=== PATIENT | male | born 1950 | race African-American/Black ===

== ENCOUNTER 2023-09-12 15:06 | Inpatient (IN) | payer MEDICARE, MEDICAID ==
[~2023-09-12] VITALS: Ht 162.6 cm; Wt 60.8 kg
[2023-09-12] MEDS: LATANOPROST 0.005% OPHTH DROPS 2.5ML EACHEYE SCH (11:15)
[2023-09-12 15:07] VITALS: O2SAT 100
[2023-09-12 16:20] LABS: BASOPHILS % 0.3 % (0.0-2.0); EOSINOPHILS % 0.4 % (0.0-5.0); HEMATOCRIT. 29.3 % (42.0-52.0); HEMOGLOBIN. 9.3 g/dL (14.0-18.0); LYMPHOCYTES % 7.7 % (20.0-50.0); MEAN CORPUSCULAR HEMOGLOBIN 25.8 pg (28.0-32.0); MEAN CORPUSCULAR HGB CONC 31.7 g/dL (31.0-37.0); MEAN CORPUSCULAR VOLUME 81.6 fL (80.0-94.0); MONOCYTES % 10.1 % (2.0-8.0); NEUTROPHILS % 81.5 % (40.0-76.0); PLATELET 146 x1000/uL (130-400); RED BLOOD CELL COUNT 3.59 mill/uL (4.7-6.1); RED CELL DISTRIBUTION WIDTH 15.3 % (11.6-14.6); WHITE BLOOD COUNT 5.8 x1000/uL (4.5-11.0)
[2023-09-12 16:27] LABS: CHLORIDE 101 mEq/L (98-107); POTASSIUM 3.5 mEq/L (3.5-5.1); SODIUM 133 mEq/L (136-145)
[2023-09-12 16:28] LABS: CARBON DIOXIDE 26 mEq/L (21-32)
[2023-09-12 16:29] LABS: CALCIUM 9.5 mg/dL (8.7-10.4)
[2023-09-12 16:34] LABS: GLUCOSE 93 mg/dL (70-105); UREA NITROGEN BLOOD 10 mg/dL (9-23)
[2023-09-12 16:36] LABS: CREATININE 0.4 mg/dL (0.6-1.3)
[2023-09-12 16:37] LABS: TROPONIN I HIGH SENSITIVITY < 4 ng/L (3.0-53)
[2023-09-12 16:47] LABS: D-DIMER 10.17 mg/L FEU (<0.50); INR 1.2; PROTHROMBIN TIME 13.5 sec (9.6-11.0)
[2023-09-12] MEDS: MORPHINE SULFATE 4 MG/ML INJ (FOR IV/IM USE) IV ONE (17:27)
[2023-09-12] MEDS: ONDANSETRON HCL 4MG/2ML INJ IV ONE (17:28)
[2023-09-12] MEDS ORDERED: IPRATROPIUM/ALBUTEROL 0.5-3(2.5)MG/3ML NEB HHN PRN (19:45)
[2023-09-12] MEDS ORDERED: NA PHOS,M-B/NA PHOS,DI-BA ENEMA 118ML PR PRN (19:45)
[2023-09-12] MEDS ORDERED: MAGNESIUM/ALUMINUM HYDROXIDE/SIMETHICONE 30ML UDC PO PRN (19:45)
[2023-09-12] MEDS ORDERED: ONDANSETRON HCL 4MG/2ML INJ IV PRN (19:45)
[2023-09-12] MEDS ORDERED: ACETAMINOPHEN 325MG TABLET PO PRN (19:45)
[2023-09-12] MEDS ORDERED: ZOLPIDEM TARTRATE 5MG TABLET PO PRN (19:45)
[2023-09-12] MEDS ORDERED: LATA2.5D14 EACHEYE (20:31)
[2023-09-12] MEDS ORDERED: TIMO15DR11 EACHEYE (20:31)
[2023-09-12] MEDS ORDERED: ATOR20TA65 PO (20:31)
[2023-09-12] MEDS ORDERED: DORZ10DR8 EACHEYE (20:31)
[2023-09-12] MEDS ORDERED: HYDR-4001 PO (20:31)
[2023-09-12] MEDS: DOCUSATE SODIUM 100MG CAPSULE PO SCH (20:37)
[2023-09-12] MEDS: LACTULOSE 20G/30ML UDC PO NR (20:38)
[2023-09-12 20:43] LABS: CLARITY URINE CLEAR (CLEAR); COLOR URINE YELLOW (YELLOW); GLUCOSE URINE NEGATIVE (NEGATIVE); KETONES URINE 1+ (NEGATIVE); LEUKOCYTE ESTERASE URINE NEGATIVE (NEGATIVE); NITRITE URINE NEGATIVE (NEGATIVE); OCCULT BLOOD URINE NEGATIVE (NEGATIVE); PH URINE 5.5 (4.5-8.0); PROTEIN URINE NEGATIVE (NEGATIVE); SPECIFIC GRAVITY URINE 1.015 (1.005-1.030)
[2023-09-12 20:56] LABS: *AMPHETAMINES SCREEN URINE NEGATIVE (NEGATIVE); *BARBITURATES SCREEN URINE NEGATIVE (NEGATIVE); *BENZODIAZEPINES SCREEN URINE NEGATIVE (NEGATIVE); *COCAINE SCREEN URINE NEGATIVE (NEGATIVE); CANNABINOID URINE SCREEN NEGATIVE (NEGATIVE); ECSTASY MDMA SCREEN URINE NEGATIVE (NEGATIVE); METHADONE URINE SCREEN NEGATIVE (NEGATIVE); OPIATES URINE SCREEN PRESUMPTIVE POSITIVE (NEGATIVE); PHENCYCLIDINE URINE SCREEN NEGATIVE (NEGATIVE)
[2023-09-12 22:49] LABS: FOLIC ACID (FOLATE) SERUM 17.05 ng/mL (>5.38)
[2023-09-12 22:50] LABS: FERRITIN 1067 ng/mL (22-322); VITAMIN B12 SERUM 630 pg/mL (211-911)
[2023-09-12] MEDS: ATORVASTATIN CALCIUM 20MG TABLET PO SCH (23:08)
[2023-09-12] MEDS: DORZOLAMIDE 2% OPHTH 10 ML BOTTLE EACHEYE SCH (23:08)
[2023-09-12] MEDS: FAMOTIDINE 20MG TABLET PO SCH (23:08)
[2023-09-12] MEDS ORDERED: IOHEXOL-350 100 ML BOTTLE ONE (23:24)
[2023-09-13] VITALS: BP 124/68; PULSE 78; RESP 18; TEMP 98.2
[2023-09-13] MEDS: HYDROCODONE/ACETAMINOPHEN 5/325MG TABLET PO PRN (03:31)
[2023-09-13 07:35] LABS: BASOPHILS % 0.4 % (0.0-2.0); EOSINOPHILS % 0.7 % (0.0-5.0); HEMATOCRIT. 28.7 % (42.0-52.0); LYMPHOCYTES % 8.4 % (20.0-50.0); MEAN CORPUSCULAR HEMOGLOBIN 25.8 pg (28.0-32.0); MEAN CORPUSCULAR HGB CONC 31.5 g/dL (31.0-37.0); MEAN CORPUSCULAR VOLUME 81.9 fL (80.0-94.0); MEAN PLATELET VOLUME 7.3 fl (7.4-10.4); NEUTROPHILS % 80.5 % (40.0-76.0); PLATELET 141 x1000/uL (130-400); RED CELL DISTRIBUTION WIDTH 15.6 % (11.6-14.6); WHITE BLOOD COUNT 5.5 x1000/uL (4.5-11.0)
[2023-09-13 07:41] LABS: CHLORIDE 101 mEq/L (98-107); POTASSIUM 3.6 mEq/L (3.5-5.1); SODIUM 134 mEq/L (136-145)
[2023-09-13 07:42] LABS: CALCIUM 10.1 mg/dL (8.7-10.4); CARBON DIOXIDE 23 mEq/L (21-32)
[2023-09-13 07:45] LABS: CREATINE KINASE MB FRACTION < 0.5 ng/mL (0.5-3.6)
[2023-09-13 07:47] LABS: CREATINE KINASE 35 IU/L (46-171); CREATININE 0.4 mg/dL (0.6-1.3); GLUCOSE 98 mg/dL (70-105); UREA NITROGEN BLOOD 7 mg/dL (9-23)
[2023-09-13 07:49] LABS: PHOSPHORUS 3.7 mg/dL (2.5-4.9)
[2023-09-13 07:50] LABS: TROPONIN I HIGH SENSITIVITY < 4 ng/L (3.0-53)
[2023-09-13 08:00] VITALS: BP 121/79; PULSE 74; RESP 20; TEMP 97.7
[2023-09-13] MEDS: TIMOLOL MALEATE 0.25% OPHTH DROPS 5ML EACHEYE SCH (08:51)
[2023-09-13] MEDS: ENOXAPARIN 40MG/0.4ML SYR SUBCUT SCH (08:55)
[2023-09-13 12:00] VITALS: BP 105/69; PULSE 70; RESP 20; TEMP 98
[2023-09-13] MEDS: MAGNESIUM 2 G PREMIX 50 ML IV SCH (13:39)
[2023-09-13 16:00] VITALS: BP 124/70; PULSE 64; RESP 18; TEMP 97.7
[2023-09-13] MEDS: MORPHINE SULFATE 2 MG/ML CPJ (NOT FOR IM USE) IV PRN (19:35)
[2023-09-13 20:00] VITALS: PULSE 69; RESP 18; TEMP 97.7
[2023-09-14] VITALS: BP 121/64; PULSE 68; RESP 19; TEMP 97.6
[2023-09-14 04:00] VITALS: BP 134/76; PULSE 65; RESP 17; TEMP 97.5
[2023-09-14 08:00] VITALS: BP 132/70; PULSE 71; RESP 18; TEMP 97.9
[2023-09-14 12:00] VITALS: BP 117/61; PULSE 70; RESP 18; TEMP 97.7
[2023-09-14 16:00] VITALS: BP 129/62; PULSE 69; RESP 18; TEMP 97.6
[2023-09-14 16:17] LABS: HEMATOCRIT 30.6 % (42.0-52.0); HEMOGLOBIN 9.4 g/dL (14.0-18.0); MEAN CORPUSCULAR HEMOGLOBIN 25.6 pg (28.0-32.0); MEAN CORPUSCULAR HGB CONC 30.8 g/dL (31.0-37.0); MEAN CORPUSCULAR VOLUME 83.1 fL (80.0-94.0); PLATELET 149 x1000/uL (130-400); RED BLOOD CELL COUNT 3.69 mill/uL (4.7-6.1); RED CELL DISTRIBUTION WIDTH 15.3 % (11.6-14.6)
[2023-09-14 16:32] LABS: CALCIUM 9.5 mg/dL (8.7-10.4); CARBON DIOXIDE 25 mEq/L (21-32); CHLORIDE 99 mEq/L (98-107); POTASSIUM 3.8 mEq/L (3.5-5.1); SODIUM 135 mEq/L (136-145)
[2023-09-14 16:37] LABS: CREATININE 0.5 mg/dL (0.6-1.3); GLUCOSE 135 mg/dL (70-105)
[2023-09-14 16:38] LABS: UREA NITROGEN BLOOD 8 mg/dL (9-23)
[2023-09-14 16:40] LABS: PHOSPHORUS 3.1 mg/dL (2.5-4.9)
[2023-09-14 20:00] VITALS: BP 110/68; PULSE 73; RESP 18; TEMP 97.5
[2023-09-15] VITALS: BP 121/65; PULSE 72; RESP 18; TEMP 97.5
[2023-09-15 04:00] VITALS: BP 122/86; PULSE 71; RESP 18; TEMP 97.3
[2023-09-15 08:00] VITALS: BP 143/84; PULSE 94; RESP 18; TEMP 98
[2023-09-15 10:36] LABS: HEMATOCRIT 32.8 % (42.0-52.0); HEMOGLOBIN 10.4 g/dL (14.0-18.0); MEAN CORPUSCULAR HEMOGLOBIN 25.9 pg (28.0-32.0); MEAN CORPUSCULAR HGB CONC 31.5 g/dL (31.0-37.0); MEAN CORPUSCULAR VOLUME 82.1 fL (80.0-94.0); RED CELL DISTRIBUTION WIDTH 15.4 % (11.6-14.6); WHITE BLOOD COUNT 8.9 x1000/uL (4.5-11.0)
[2023-09-15 10:44] LABS: CALCIUM 10.1 mg/dL (8.7-10.4); CARBON DIOXIDE 27 mEq/L (21-32); CHLORIDE 96 mEq/L (98-107); POTASSIUM 3.4 mEq/L (3.5-5.1); SODIUM 136 mEq/L (136-145)
[2023-09-15 10:50] LABS: CREATININE 0.5 mg/dL (0.6-1.3); GLUCOSE 114 mg/dL (70-105); UREA NITROGEN BLOOD 9 mg/dL (9-23)
[2023-09-15 10:52] LABS: PHOSPHORUS 3.4 mg/dL (2.5-4.9)
[2023-09-15 12:00] VITALS: BP 131/74; PULSE 70; RESP 20; TEMP 97.2
[2023-09-15 12:05] LABS: PLATELET 157 x1000/uL (130-400)
[2023-09-15] MEDS: POTASSIUM CHLORIDE 20MEQ/PACKET PO NR (13:14)
[2023-09-15 16:00] VITALS: BP 100/67; PULSE 74; RESP 20; TEMP 97.6
[2023-09-15] MEDS: CLONIDINE 0.1MG TABLET PO PRN (21:33)
[2023-09-15 23:53] VITALS: BP 169/100; PULSE 66; RESP 20; TEMP 98.4
[2023-09-16 04:00] VITALS: BP 129/63; PULSE 63; RESP 18; TEMP 97.8
[2023-09-16] MEDS ORDERED: AMLODIPINE 5MG TABLET PO SCH (07:30)
[2023-09-16] MEDS ORDERED: POTASSIUM CHLORIDE 20MEQ/PACKET PO ONE (07:30)
[2023-09-16 08:00] VITALS: BP 121/70; PULSE 70; RESP 20; TEMP 98
[2023-09-16] MEDS: ACETAMINOPHEN 325MG TABLET PO PRN (08:18)
[2023-09-16 10:22] LABS: CARBON DIOXIDE 26 mEq/L (21-32); CHLORIDE 98 mEq/L (98-107); POTASSIUM 3.9 mEq/L (3.5-5.1); SODIUM 134 mEq/L (136-145)
[2023-09-16 10:23] LABS: CALCIUM 10.2 mg/dL (8.7-10.4)
[2023-09-16 10:27] LABS: CREATININE 0.5 mg/dL (0.6-1.3)
[2023-09-16 10:28] LABS: GLUCOSE 121 mg/dL (70-105); UREA NITROGEN BLOOD 10 mg/dL (9-23)
[2023-09-16 12:00] VITALS: BP 114/58; PULSE 69; RESP 18; TEMP 97
[2023-09-16 16:00] VITALS: BP 121/56; PULSE 61; RESP 20; TEMP 97
== END 2023-09-16 18:30 | DRG 947 ==
LOC: ER 15:06 → 5WST 18:58 → EDBEDREQ 19:00 → EDBEDREQTM 19:00 → 8WST 23:28
PROVIDERS: ADMIT Internal Medicine; ATTEND Internal Medicine
DX: G89.3 Neoplasm related pain (acute) (chronic) (principal); L89.153 Pressure ulcer of sacral region, stage 3; L89.323 Pressure ulcer of left buttock, stage 3; L89.313 Pressure ulcer of right buttock, stage 3; E87.1 Hypo-osmolality and hyponatremia; M48.54XA Collapsed vertebra, not elsewhere classified, thoracic region, initial encounter for fracture; C79.51 Secondary malignant neoplasm of bone; G99.2 Myelopathy in diseases classified elsewhere; M48.061 Spinal stenosis, lumbar region without neurogenic claudication; R59.0 Localized enlarged lymph nodes; R07.81 Pleurodynia; K56.41 Fecal impaction; D64.9 Anemia, unspecified; M47.816 Spondylosis without myelopathy or radiculopathy, lumbar region; M48.04 Spinal stenosis, thoracic region; M47.812 Spondylosis without myelopathy or radiculopathy, cervical region; E78.00 Pure hypercholesterolemia, unspecified; E83.42 Hypomagnesemia; T39.95XA Adverse effect of unspecified nonopioid analgesic, antipyretic and antirheumatic, initial encounter; Y92.89 Other specified places as the place of occurrence of the external cause; Z74.01 Bed confinement status; Z85.46 Personal history of malignant neoplasm of prostate; Z86.12 Personal history of poliomyelitis; Z87.891 Personal history of nicotine dependence; Z80.52 Family history of malignant neoplasm of bladder
CPT/HCPCS: 36415; 71045; 71275; 72128; 72131; 72141; 72146; 72148; 74176; 80048; 80305; 81003; 82550; 82553; 82607; 82728; 82746; 83735; 83880; 84100; 84484; 85025; 85027; 85379; 86850; 86900; 93005; 93970; 97162; 99291; J1650; J2270; J2405; J3475; Q9967